=== PATIENT | male | born 1990 | race Two or more races ===

== ENCOUNTER 2018-01-27 21:41 | Emergency (ER) | payer MEDICAID ==
[~2018-01-27] VITALS: Ht 172.7 cm; Wt 74.8 kg
--- NOTE | 2018-01-27 21:53 | NUR ---
PT BIB RA WITH A C/O ETOH. PT IS SPEAKING AGGRESSIVELY AND SPITTING. PT APPEARS AGGITATED THAT HE IS NOT IN A BED YET. PT TAKEN TO ROOM #14.
--- NOTE | 2018-01-27 22:02 | NUR ---
CAT HARDING IS AT THE BEDSIDE SPEAKING TO THE PT.
--- NOTE | 2018-01-27 22:47 | NUR ---
pt appears to be sleeping soundly with no s/s of pain or distress. resp even and unlabored. vss.
--- NOTE | 2018-01-28 00:45 | NUR ---
PT APPEARS TO BE SLEEPING SOUNDLY WITH NO ACUTE DISTRESS NOTED. RESP ARE EVEN AND UNLABORED. PT IS ON THE MONITOR AND CONTINUOUS PULSE OX. VSS. WILL CONTINUE TO MONITOR THE PT.
[2018-01-28 01:53] VITALS: BP 119/63
--- NOTE | 2018-01-28 01:53 | NUR ---
Patient discharged to home in stable condition. Written and verbal after care instructions given. Patient verbalizes understanding of instruction. PT AMBULATED OUT WITH A STEADY GAIT. PT REC'D 3 JUICES AND ALL ACI. VSS. RESP EVEN AND UNLABORED. NO ATAXIA NOTED.
== END 2018-01-28 01:53 | disposition home or self-care (01) ==
LOC: ER 21:42
DX: F10.129 Alcohol abuse with intoxication, unspecified (principal); F17.200 Nicotine dependence, unspecified, uncomplicated; Z98.890 Other specified postprocedural states
CPT/HCPCS: 36415; 82962; 99283; A4606 ×2; G0480; Z7610 ×2